=== PATIENT | female | born 1960 | race African-American/Black ===

== ENCOUNTER 2017-09-20 01:35 | Emergency (ER) | payer SELFPAY ==
[2017-09-20] VITALS (7 sets, daily range): BP systolic 79–175; BP diastolic 54–94; PULSE 48–69; RESP 16–20; TEMP 98.4; O2SAT 98–100
[~2017-09-20 01:35] MED LIST: MOTI25CH PO; ONDA1TAB16 PO; Z.0.NO CURRENT MEDS; ZITH250T PO
[2017-09-20] MEDS ORDERED: IOHEXOL 350 MG/ML 10 ML VIAL (for RAD DIAG) IVCONTRAST ONE (01:36)
[2017-09-20] MEDS ORDERED: SODIUM CHLORIDE 0.9% FLUSH 10 ML FLUSH IVF PRN (02:00)
[2017-09-20] MEDS ORDERED: SODIUM CHLOR 0.9% 1000 ML INJ 1,000 ML IV ONE (02:00)
[2017-09-20 02:27] LABS: AUTOMATED NEUTROPHIL # 8.4 TH/MM3 (1.8-7.7); BASOPHIL % 0.3 % (0.0-2.0); EOSINOPHIL % 0.4 % (0.0-4.0); HEMATOCRIT 36.9 % (35.0-46.0); HEMOGLOBIN 11.5 GM/DL (11.6-15.3); LYMPH % 25.6 % (9.0-44.0); LYMPHOCYTE # 3.1 TH/MM3 (1.0-4.8); MEAN CELL VOLUME 71.6 FL (80.0-100.0); MEAN CORPUSCULAR HEMOGLOBIN 22.2 PG (27.0-34.0); MEAN CORPUSCULAR HGB CONC 31.1 % (32.0-36.0); MEAN PLATELET VOLUME 8.1 FL (7.0-11.0); MONOCYTE # 0.6 TH/MM3 (0-0.9); NEUT % 68.7 % (16.0-70.0); PLATELET COUNT 272 TH/MM3 (150-450); RED BLOOD COUNT 5.16 MIL/MM3 (4.00-5.30); RED CELL DISTRIBUTION WIDTH 14.5 % (11.6-17.2); WHITE BLOOD COUNT 12.2 TH/MM3 (4.0-11.0)
--- NOTE | 2017-09-20 02:28 | RADRPT ---
EXAM DATE/TIME: 09/20/2017 02:06 [facility] COMPARISON: CHEST PA & LAT, January 16, 2011, 16:54. INDICATIONS : Chest pain. MEDICAL HISTORY : None. SURGICAL HISTORY : None. ENCOUNTER: Initial ACUITY: 1 day PAIN SCORE: 1/10 LOCATION: Bilateral chest FINDINGS: There is mild linear parenchymal opacity in the lung bases bilaterally which may be mild infiltrate o r atelectasis. Right cardiophrenic angle density is unchanged consistent with epicardial fat. Account ing for rotation, cardiac contours are grossly stable. CONCLUSION: Mild basilar infiltrates or atelectasis Corey Kyle MD on September 20, 2017 at 2:25 Board Certified Radiologist. This report was verified electronically.
[2017-09-20 02:40] LABS: PROTHROMBIN TIME - PATIENT 9.9 SEC (9.8-11.6)
[2017-09-20 02:46] LABS: ALBUMIN 3.5 GM/DL (3.4-5.0); ALT (GPT) 19 U/L (10-53); AST (GOT) 12 U/L (15-37); BICARBONATE 24.7 MEQ/L (21.0-32.0); BLOOD UREA NITROGEN 18 MG/DL (7-18); CALCIUM 8.5 MG/DL (8.5-10.1); CHLORIDE 106 MEQ/L (98-107); CREATININE 0.81 MG/DL (0.50-1.00); GLOMERULAR FILTRATION RATE 88 ML/MIN (>89); GLUCOSE,RANDOM 128 MG/DL (74-106); LIPASE 149 U/L (73-393); MAGNESIUM 1.9 MG/DL (1.5-2.5); SODIUM (NA) 137 MEQ/L (136-145)
[2017-09-20 02:50] LABS: ALKALINE PHOSPHATASE 77 U/L (45-117); TOTAL BILIRUBIN ADULT 0.5 MG/DL (0.2-1.0); TOTAL PROTEIN 7.1 GM/DL (6.4-8.2); TROPONIN I LESS THAN 0.02 NG/ML (0.02-0.05)
--- NOTE | 2017-09-20 04:35 | RADRPT ---
EXAM DATE/TIME: 09/20/2017 03:03 [facility] COMPARISON: CHEST SINGLE AP, September 20, 2017, 2:06. INDICATIONS : Left shoulder and arm pain. Possible dissection. IV CONTRAST: 90 cc Omnipaque 350 (iohexol) IV RADIATION DOSE: 7.35 CTDIvol (mGy) MEDICAL HISTORY : None SURGICAL HISTORY : Tubal ligation. ENCOUNTER: Initial ACUITY: 1 day PAIN SCALE: 10/10 LOCATION: Left arm and shoulder TECHNIQUE: Volumetric scanning was performed using a multi-row detector CT scanner. The data was post processed with a variety of visualization algorithms including full volume maximum intensity projection, multi -planar sliding thin slab reformation, curved planar reformation, and surface rendering techniques. Using automated exposure control and adjustment of the mA and/or kV according to patient size, radiat ion dose was kept as low as reasonably achievable to obtain optimal diagnostic quality images. DICOM format image data is available electronically for review and comparison. FINDINGS: LUNGS: Minimal patchy infiltrate in the lung bases. MEDIASTINUM: No abnormally enlarged lymph nodes by CT criteria. No axillary or hilar abnormalities are identified. ABDOMEN: The liver and spleen are free of focal defects. The gallbladder and pancreas demonstrate no abnormali ty. The adrenal glands are normal. The kidneys demonstrate no evidence of solid renal mass or hydrone phrosis. No free fluid or abdominal masses are identified. No para-aortic adenopathy is seen. PELVIS: No evidence of free fluid or pelvic mass. No abnormally enlarged inguinal or retroperitoneal lymph no ryan are present. The bladder is unremarkable. THORACIC AORTA: The thoracic aortic root is normal with normal branching of the great vessels. There is no evidence of aneurysm or dissection. ABDOMINAL AORTA: The aorta is normal in caliber without aneurysm or dissection. The renal arteries are patent bilater ally. The proximal celiac and superior mesenteric arteries are patent and normal in diameter. PELVIC VESSELS: The internal iliac and external iliac vessels are patent without aneurysm or stenosis. CONCLUSION: No acute vascular findings. Corey Kyle MD on September 20, 2017 at 4:30 Board Certified Radiologist. This report was verified electronically.
[2017-09-20] MEDS ORDERED: NAPR500T2 PO (04:59)
--- NOTE | 2017-09-20 04:59 | PD ---
HPI Chief Complaint: Pain: Acute or Chronic Time Seen by Provider: 01:46 Travel History International Travel<30 days: No Contact w/Intl Traveler<30days: No History of Present Illness HPI Is a 48-year-old presents emergent complaining of left shoulder pain. States it started 1 day ago. Constant. Worse with any movement. Unrelieved with medications at home. She drank some beer today to see if it would help with intermittent. No history of previous similar symptoms. No injuries. EMS reported a low blood pressure with low heart rate. History Past Medical History Medical History: Denies Significant Hx Tetanus Vaccination: Unknown Influenza Vaccination: No : 7 Para: 4 Social History Alcohol Use: Yes (OCCASIONALY) Tobacco Use: Yes (1/2 PPD) Allergies-Medications (Allergen,Severity, Reaction): Coded Allergies: No Known Allergies (Verified Adverse Reaction, Unknown, 09/20/17) Reported Meds & Prescriptions Reported Meds & Active Scripts Active Naproxen 500 Mg Tab 500 Mg PO BID Meclizine Hcl (Meclizine HCl) 25 Mg Tab 25 Mg PO QID PRN Zofran Tab (Ondansetron HCl) 4 Mg Tab 4 Mg PO Q6 PRN Zithromax Z-El (Azithromycin) 250 Mg Tab 250 Mg PO DIRECTED Z-Pack Take as directed 2 tabs day one 1 tablet days 2 through 5 Reported No Current Meds (Miscellaneous Medication) [facility] Review of Systems Except as stated in HPI: all other systems reviewed are Neg Physical Exam Narrative GENERAL: Well-appearing 56 year-old woman, appears uncomfortable but nontoxic. SKIN: Focused skin assessment warm/dry. ENT: No nasal bleeding or discharge. Mucous membranes pink and moist. NECK: Trachea midline. No JVD. CARDIOVASCULAR: Regular rate and rhythm. No murmur appreciated. Strong peripheral pulses in all 4 extremities. RESPIRATORY: No accessory muscle use. Clear to auscultation. Breath sounds equal bilaterally. GASTROINTESTINAL: Abdomen soft, non-tender, nondistended. Hepatic and splenic margins not palpable. MUSCULOSKELETAL: No obvious deformities. No clubbing. No cyanosis. No edema. NEUROLOGICAL: Awake and alert. No obvious cranial nerve deficits. Motor grossly within normal limits. Normal speech. PSYCHIATRIC: Tearful and anxious. Data Data Last Documented VS Vital Signs Date Time Temp Pulse Resp B/P (MAP) Pulse Ox O2 Delivery O2 Flow Rate FiO2 09/20/17 05:01 09/20/17 03:01 69 18 99 Room Air 09/20/17 01:39 98.4 Orders Orders Electrocardiogram (09/20/17 01:55) Complete Blood Count With Diff (09/20/17 01:55) Comprehensive Metabolic Panel (09/20/17 01:55) Magnesium (Mg) (09/20/17 01:55) Prothrombin Time / Inr (Pt) (09/20/17 01:55) Act Partial Throm Time (Ptt) (09/20/17 01:55) Troponin I (09/20/17 01:55) Lipase (09/20/17 01:55) Chest, Single Ap (09/20/17 01:55) Ecg Monitoring (09/20/17 01:55) Iv Access Insert/Monitor (09/20/17 01:55) Oximetry (09/20/17 01:55) Oxygen Administration (09/20/17 01:55) Sodium Chloride 0.9% Flush (Ns Flush) (09/20/17 02:00) Cta Thor Abd Aorta W Iv C W3d (09/20/17 01:55) Sodium Chlor 0.9% 1000 Ml Inj (Ns 1000 M (09/20/17 02:00) Iohexol 350 Inj (Omnipaque 350 Inj) (09/20/17 01:36) Ed Discharge Order (09/20/17 04:59) Naproxen (Naprosyn) (09/20/17 05:15) Labs Laboratory Tests Test 09/20/17 02:03 White Blood Count 12.2 TH/MM3 Red Blood Count 5.16 MIL/MM3 Hemoglobin 11.5 GM/DL Hematocrit 36.9 % Mean Corpuscular Volume 71.6 FL Mean Corpuscular Hemoglobin 22.2 PG Mean Corpuscular Hemoglobin Concent 31.1 % Red Cell Distribution Width 14.5 % Platelet Count 272 TH/MM3 Mean Platelet Volume 8.1 FL Neutrophils (%) (Auto) 68.7 % Lymphocytes (%) (Auto) 25.6 % Monocytes (%) (Auto) 5.0 % Eosinophils (%) (Auto) 0.4 % Basophils (%) (Auto) 0.3 % Neutrophils # (Auto) 8.4 TH/MM3 Lymphocytes # (Auto) 3.1 TH/MM3 Monocytes # (Auto) 0.6 TH/MM3 Eosinophils # (Auto) 0.0 TH/MM3 Basophils # (Auto) 0.0 TH/MM3 CBC Comment DIFF FINAL Differential Comment Prothrombin Time 9.9 SEC Prothromb Time International Ratio 1.0 RATIO Activated Partial Thromboplast Time 22.2 SEC Blood Urea Nitrogen 18 MG/DL Creatinine 0.81 MG/DL Random Glucose 128 MG/DL Total Protein 7.1 GM/DL Albumin 3.5 GM/DL Calcium Level 8.5 MG/DL Magnesium Level 1.9 MG/DL Alkaline Phosphatase 77 U/L Aspartate Amino Transf (AST/SGOT) 12 U/L Alanine Aminotransferase (ALT/SGPT) 19 U/L Total Bilirubin 0.5 MG/DL Sodium Level 137 MEQ/L Potassium Level 4.1 MEQ/L Chloride Level 106 MEQ/L Carbon Dioxide Level 24.7 MEQ/L Anion Gap 6 MEQ/L Estimat Glomerular Filtration Rate 88 ML/MIN Troponin I LESS THAN 0.02 NG/ML Lipase 149 U/L MDM Medical Decision Making Medical Screen Exam Complete: Yes Emergency Medical Condition: Yes Interpretation(s) My review of EKG: Sinus bradycardia at a rate of 55, normal axis, normal intervals, no acute ischemia. Differential Diagnosis Dissection, shoulder pain, adverse effect of alcohol, illicit drugs, pneumothorax, PE, other Narrative Course Medical decision making INITIAL: 56 year-old woman, presented somewhat dramatically of left shoulder pain and hypotension and relative bradycardia. She states she drank some beers today to help with the shoulder pain which may be contributing to her presentation. There is concern for dissection given the constellation of complaints. All of her initial workups unremarkable. She is feeling much better after some time in the ED. I don't think she has an ACS or other cold mist disease. She was feeling better and so he decided to discharge her use NSAIDs for follow-up. Etiology of her shoulder pain is still unclear. Diagnosis Primary Impression: Left shoulder pain Additional Instructions: Think naproxen as needed for shoulder pain. Follow-up with her primary doctor in 2-3 days. Return to the emergency department for any new or worsening symptoms. Med/Other Pt SpecificInfo: Prescription(s) given Scripts Naproxen (Naproxen) 500 Mg Tab 500 MG PO BID, #60 TAB 0 Refills Prov: Nelson Hunter MD 09/20/17 Disposition: 01 DISCHARGE HOME Condition: Stable Nelson Hunter MD Sep 20, 2017 04:59
[2017-09-20] MEDS ORDERED: NAPROXEN 500 MG TAB PO ONE (05:15)
--- NOTE | 2017-09-20 21:26 | EKG ---
Date Performed: 09/20/2017 Time Performed: 01:47:32 PTAGE: 56 years EKG: SINUS BRADYCARDIA LOW QRS VOLTAGE IN PRECORDIAL LEADS MODERATE T-WAVE ABNORMALITY ABNORMAL ECG PREVIOUS TRACING : 02/08/2009 02.14 Compared to prior tracing no significant change DOCTOR: Oswald Abad Interpretating Date/Time 09/20/2017 21:26:03
== END 2017-09-20 05:43 | disposition home or self-care (01) ==
LOC: NEPE 01:35
DX: M25.512 Pain in left shoulder (principal); I95.9 Hypotension, unspecified; R94.31 Abnormal electrocardiogram [ECG] [EKG]; Z72.0 Tobacco use
CPT/HCPCS: 71010; 71275; 74174; 80053; 83690; 83735; 84484; 85025; 85610; 85730; 93005; 96360; 99285; J7030; Q9967

== ENCOUNTER 2018-03-06 13:22 | Emergency (ER) | payer SELFPAY ==
[~2018-03-06] VITALS: Ht 157.5 cm; Wt 79.8 kg
[~2018-03-06 13:22] MED LIST changes: +NAPR500T2 PO
[2018-03-06 13:26] VITALS: BP 134/74; PULSE 74; RESP 16; TEMP 98.4; O2SAT 98
--- NOTE | 2018-03-06 13:54 | PD ---
HPI Chief Complaint: Eye Problems/Injury Time Seen by Provider: 13:52 Travel History International Travel<30 days: No Contact w/Intl Traveler<30days: No Traveled to known affect area: No History of Present Illness HPI 57-year-old female presents to the emergency department with complaint of redness and itching to both of her eyes for 1 week. 2 days ago she started getting crusting to both of her eyes. Denies eye trauma or foreign body. Denies eye pain, change in vision. Denies fever, vomiting. Denies recent illness. No one else with similar symptoms. Has tried Visine drops for symptom management. Symptoms are mild in severity. No known aggravating or relieving factors. No known allergies. No primary care provider. Denies significant past medical history. Has no other medical complaints. No other modifying factors or associated signs and symptoms. PFSH Past Medical History Arthritis: No Asthma: No Autoimmune Disease: No Blood Disorders: No Anxiety: No Depression: No Heart Rhythm Problems: No Cancer: No Cardiac Catheterization: No Cardiovascular Problems: No High Cholesterol: No Chemotherapy: No Chest Pain: No Congestive Heart Failure: No COPD: No Cerebrovascular Accident: No Diabetes: No Diminished Hearing: No Endocrine: No Genitourinary: No Headaches: No Hypertension: No Immune Disorder: No Kidney Stones: No Musculoskeletal: No Neurologic: No Psychiatric: No Reproductive: No Respiratory: No Immunizations Current: Yes Migraines: No Myocardial Infarction: No Radiation Therapy: No Renal Failure: No Seizures: No Sickle Cell Disease: No Sleep Apnea: No Thyroid Disease: No Influenza Vaccination: No ?: Not : 7 Para: 4 : 3 Tubal Ligation: Yes Past Surgical History Abdominal Surgery: No AICD: No Arteriovenous Shunt: No Cardiac Surgery: No Coronary Artery Bypass Graft: No Ear Surgery: No Endocrine Surgery: No Eye Surgery: No Genitourinary Surgery: No Gynecologic Surgery: Yes (TUBAL LIGATION) Insulin Pump: No Joint Replacement: No Oral Surgery: No Pacemaker: No Thoracic Surgery: No Other Surgery: Yes (TUBAL LIGATION IN 'S) Social History Alcohol Use: Yes (OCCASIONALY) Tobacco Use: Yes (1/2 PPD) Substance Use: Yes (occasional marijuana) Allergies-Medications (Allergen,Severity, Reaction): Coded Allergies: No Known Allergies (Verified Adverse Reaction, Unknown, 03/06/18) Reported Meds & Prescriptions Reported Meds & Active Scripts Active Polytrim Opth Drops (Polymyxin/Trimethoprim Sulfate) 10,000-0.1 Unit/Ml-% Soln 2 Drop EACH EYE Q6HR 7 Days Naproxen 500 Mg Tab 500 Mg PO BID Meclizine Hcl (Meclizine HCl) 25 Mg Tab 25 Mg PO QID PRN Zofran Tab (Ondansetron HCl) 4 Mg Tab 4 Mg PO Q6 PRN Zithromax Z-El (Azithromycin) 250 Mg Tab 250 Mg PO DIRECTED Z-Pack Take as directed 2 tabs day one 1 tablet days 2 through 5 Reported No Current Meds (Miscellaneous Medication) Misc Review of Systems Except as stated in HPI: all other systems reviewed are Neg Physical Exam Narrative GENERAL: Well-nourished, well-developed black female patient, in no acute distress SKIN: Warm and dry. HEAD: Atraumatic. Normocephalic. EYES: Pupils equal and round at 3 mm with brisk reaction. PERRLA. EOMI. Bilateral lid eversion with no foreign body noted. Bilateral eyes with minimal scleral erythema and without lid edema. No orbital tenderness, erythema or cellulitis. No photophobia. No consensual photophobia. No scleral icterus. No drainage; small amount of purulent drainage noted to the inner canthus of the left eye. ENT: Mucosa pink and moist. Airway patent. NECK: Trachea midline. CARDIOVASCULAR: Regular rate. RESPIRATORY: No accessory muscle use. GASTROINTESTINAL: Rounded. NEUROLOGICAL: Awake and alert. Oriented 3. No obvious cranial nerve deficits. Motor grossly within normal limits. Normal speech. PSYCHIATRIC: Appropriate mood and affect; insight and judgment normal. Data Data Last Documented VS Vital Signs Date Time Temp Pulse Resp B/P (MAP) Pulse Ox O2 Delivery O2 Flow Rate FiO2 03/06/18 13:26 98.4 74 16 134/74 (94) 98 Orders Orders Ed Discharge Order (03/06/18 14:01) [facility] Medical Decision Making Medical Screen Exam Complete: Yes Emergency Medical Condition: Yes Medical Record Reviewed: Yes Differential Diagnosis Viral conjunctivitis, bacterial conjunctivitis, allergic conjunctivitis Narrative Course 57-year-old female physical exam and HPI consistent with bilateral conjunctivitis. Denies eye pain or change in vision. Reports crusted drainage for the past 2 days. Reports eye itchiness. Denies eye trauma or foreign body. Polytrim eyedrops prescribed for home. Instructed patient to follow up with primary care provider. Patient verbalizes understanding and agreement with treatment plan. Patient is medically cleared and stable for discharge. Discussed reasons to return to the emergency department. Patient agrees with treatment plan. The patients vital signs are stable and the patient is stable for outpatient follow-up and treatment. Patient discharged home, stable and in no acute distress. Diagnosis Primary Impression: Bilateral conjunctivitis Qualified Codes: H10.9 - Unspecified conjunctivitis Referrals: [facility] Primary Care Physician Patient Instructions: Conjunctivitis (ED), General Instructions Additional Instructions: Conjunctivitis is contagious Use antibiotic eye drops as prescribed Apply warm or cool compresses to both eyes for a few minutes several times daily to minimize irritation Avoid triggers, such as allergens, that may irritate your eyes Wash your hands frequently Do not share washcloths, towels, pillows, or any other material that has touched your eyes with any other household members Follow-up with your primary care provider Follow-up with ophthalmology as needed Return to the emergency department immediately with worsening of symptoms Med/Other Pt SpecificInfo: Prescription(s) given Scripts Polymyxin B-Trimethoprim Opth Drops (Polytrim Opth Drops) 10,000-0.1 Unit/Ml-% Soln 2 DROP EACH EYE Q6HR for Mgmt Bacterial Infection for 7 Days, #1 BOTTLE 0 Refills Prov: Naima Curry 03/06/18 Disposition: 01 DISCHARGE HOME Condition: Stable Naima Curry Mar 06, 2018 13:54
[2018-03-06] MEDS ORDERED: POLY10O EACH EYE (14:00)
== END 2018-03-06 14:30 | disposition home or self-care (01) ==
LOC: PHEFT 13:22
DX: H10.9 Unspecified conjunctivitis (principal); F17.200 Nicotine dependence, unspecified, uncomplicated; F12.90 Cannabis use, unspecified, uncomplicated
CPT/HCPCS: 99283